=== PATIENT | male | born 1955 | race Two or more races ===

== ENCOUNTER 2025-09-16 07:35 | Inpatient (IN) | payer OTHER, MEDICAID ==
[~2025-09-16] VITALS: Ht 167.6 cm; Wt 115.2 kg
[~2025-09-16 07:35] MED LIST: ACET1CAP14 PO; CLOP75TA70 PO; METF-370 PO; METO25TA93 PO; PANT40TA2 PO
[2025-09-16 08:31] LABS: Chloride 101 mmol/L (98-107); Potassium 4.1 mmol/L (3.5-5.1); Sodium 139 mmol/L (136-145)
[2025-09-16 08:32] LABS: Anion Gap 9 (5-15); Calcium 10.1 mg/dL (8.7-10.4); Carbon Dioxide 29 mmol/L (20-31)
[2025-09-16 08:37] LABS: BUN/Creatinine Ratio 11.0 (10.0-20.0); Blood Urea Nitrogen 11 mg/dL (9-23); Glucose 103 mg/dL (74-106)
[2025-09-16] MEDS ORDERED: ONDANSETRON HCL 4 MG/2 ML VIAL IV PRN (09:00)
[2025-09-16] MEDS ORDERED: HYDROmorphone HCL 2 MG/ML VL/or syr IV PRN (09:00)
[2025-09-16] MEDS ORDERED: METOCLOPRAMIDE HCL 5MG/ml INJ 2ml VIAL IV PRN (09:00)
[2025-09-16] MEDS ORDERED: fentaNYL CITRATE 100 MCG/2 ML VL ONE (09:02)
[2025-09-16] MEDS ORDERED: MIDAZOLAM HCL 2MG/2ML 2ml VIAL (1mg/ml) ONE (09:02)
[2025-09-16] MEDS ORDERED: PROPOFOL 10 MG/ML 20 ML IV ONE (09:04)
[2025-09-16] MEDS ORDERED: ONDANSETRON HCL 4 MG/2 ML VIAL ONE (09:04)
[2025-09-16] MEDS ORDERED: METOCLOPRAMIDE HCL 5MG/ml INJ 2ml VIAL ONE (09:04)
[2025-09-16] MEDS: CEFEPIME 1GM/50ML 50 ML IV ONE (09:45)
[2025-09-16] MEDS: ceFAZolin 2 GM/D5W50ml 50 ML IV ONE (09:45)
[2025-09-16] MEDS: TRANEXAMIC ACID 20 ML ONE (09:50)
[2025-09-16] MEDS ORDERED: ROCURONIUM 10MG/ML 10ML VIAL IV ONE (10:15)
[2025-09-16] MEDS ORDERED: SODIUM CHLORIDE LOCK 10 ML ONE ×2 (10:23→11:49)
[2025-09-16] MEDS ORDERED: HYDROmorphone HCL 2 MG/ML VL/or syr ONE (10:37)
[2025-09-16] MEDS: VANCOMYCIN HCL 1000 MG VL ONE (10:48)
[2025-09-16] MEDS ORDERED: LIDOCAINE W/ EPINEPHRINE 1% 20ML VIAL ONE (10:50)
[2025-09-16] MEDS ORDERED: hydrALAZINE HCL 20 MG/ML VL ONE (10:52)
[2025-09-16] MEDS ORDERED: SUGAMMADEX 200mg/2ml Vial (100MG/ML) IV ONE (11:42)
[2025-09-16] MEDS ORDERED: ACETAMINOPHEN 325 MG TAB PO PRN (12:00)
--- NOTE | 2025-09-16 12:07 | DVHOP2 ---
Operative Report - 2 Report Details Date: 09/16/25 Preop Diagnosis: Left knee degenerative arthritis Postop Diagnosis: Left knee degenerative arthritis Surgeon: Izabela Elizabeth MD Maintenance Mechanic Technician: Fabrizio SMITH Anesthesiologist: Pop Anesthesia: General Drains: Mary closed wound suction Implant: DonJoy size eight femur PS, size seven tibial base plate, size 16 poly, size 35 patella Consent: The patient was informed of the risks and benefits of the procedure. These include but are not limited to complications of anesthesia, postoperative infection, incomplete relief of symptoms, recurrence of symptoms, damage to blood vessels, nerves and tendons, deep venous thrombosis, pulmonary embolism and possible need for repeat surgery in the future. Complications: None Estimated Blood Loss: 25 cc Fluids: See anesthesia record Findings: Osteophytes, denuded cartilage with eburnated bone x3 compartments Indications for Surgery: Left knee degenerative arthritis with severe pain and functional impairment despite nonoperative management Name of Procedure Performed Left total knee arthroplasty Procedure Details Procedure Details: The patient was brought to the operating room and placed on the table in the supine position after being given spinal anesthetic with adequate analgesia obtained. Surgical timeout was performed verifying patient, laterality and procedure Preop patient received IV cefepime IV Ancef and IV tranexamic acid. Tourniquet was applied to the lower extremity. Lower extremity was prepped and draped in sterile fashion. Extremity was elevated, exsanguinated Esmarch, and tourniquet inflated. Midline incision was made followed by medial arthrotomy. I exposed the anterior medial and lateral tibial plateau and the anterior distal femur. Bovie and aqua mantis were used for hemostasis. I excised the anterior meniscal tissue with Bovie. I excised a portion of the fat pad with Bovie. The patella was everted and the knee flexed. I drilled the distal femur and suctioned the hole to reduce the risk of fat emboli. I inserted intramedullary guide with 5 degree valgus setting. I pinned the distal femoral cutting block anteriorly. Intramedullary jose d was removed. Distal femoral cut was made and the block removed. I brought my attention to the tibia setting up the external cutting jig for the tibia paying attention to slope, rotation and varus valgus alignment. I set the depth and pinned the block. I used the external alignment jose d to aid in checking alignment. Bone cut was made and bone removed releasing soft tissue attachments with Bovie. Cutting block removed. I then checked the extension gap and deemed adequate and removed the femur and tibia pins. I flexed the knee and applied the femoral sizing guide to the femur. I checked the size and external rotation setting at 90 degrees to Whitesides line and checking the epicondylar axis. I drilled the holes then removed the sizing guide and pin. I then tapped on the 4 in 1 cutting block and checked with the remigio wing anteriorly to make sure that I would not notch then pinned the block. Cuts were made and the block and pins were removed. Bone was removed with curved osteotome. I used a rongeur to remove any remaining osteophytes at the femur and tibia. I then used a lamina capacitor pack press operator to open up the back alternating between the medial and lateral side. Any remaining meniscal tissue was excised with scalpel. I used curved osteotome, curette and rongeur to remove any posterior osteophytes. I prophylactically coagulated with aqua mantis. I then tapped on the template for the box cut and pinned it. Box cut was made and bone removed. Template and pin removed. I then tapped on the femoral trial. I then brought my attention back to the tibia sizing it. I used the external alignment jose d to make sure that rotation and alignment were good. I made a Bovie martha at the tibial tray martha identifying rotation for later use. I tried various tibial polytrials. [I then brought my attention to the patella. I sequentially dissected soft tissue with Bovie. I checked the thickness with caliper. I set the appropriate depth of cut on the cutting guide. I attached the cutting guide made my cut. I then sized the patella and made my drill holes. I then placed the patella trial with appropriate depth based on overall precut thickness. ] The patella tracked nicely without thumb pressure. I removed the trials. I pinned the tray and used the reamer and keel punch. The implants were brought into the field while bone preparation was started. I used both normal saline irrigation and the CarboJet to prepare the bone. I used the bone from the cuts to graft the femoral tunnel. Once cement was ready I applied cement to the tibial implant and tibial bone tapped it on and removed excess cement in usual fashion. In similar fashion I tapped on the femoral implant. I inserted the trial polyethylene and brought the knee into 30 degrees flexion. [I then applied the patella implant in similar fashion holding pressure with the pressurization device.] I irrigated with bacisurge irrigant. Once cement cured, I checked stability and range of motion as well as patella tracking. tourniquet was released and hemostasis maintained with aqua mantis. I inserted the polyethylene and again checked stability. I used a 2 grams of vancomycin half of which was placed deep and half superficial. I repaired the extensor mechanism with the knee in flexion with #1 Ethibond interrupted [id number]. Deep subcutaneous tissue was closed with 0 Vicryl. Superficial subcutaneous tissue was closed with 2-0 vicryl interrupted. Skin was closed with temitope. I then applied the [mary closed wound suction]. Patient tolerated the procedure well and was brought to recovery room in stable condition. Condition Stable Disposition Still a Patient IZABELA ELIZABETH MD Sep 16, 2025 12:07
[2025-09-16 12:37] VITALS: PULSE 96; RESP 16; O2SAT 92
[2025-09-16] MEDS: ACETAMINOPHEN IV 1000 MG/100ML (10MG/ML) IV ONE (13:15)
[2025-09-16] MEDS: hydrALAZINE HCL 20 MG/ML VL ONE (13:30)
[2025-09-16] MEDS: hydrALAZINE HCL 20 MG/ML VL IV PRN ×2 (13:38→14:48)
[2025-09-16] MEDS ORDERED: ceFAZolin 2 GM/D5W50ml 50 ML IV SCH (14:00)
[2025-09-16] MEDS: METOPROLOL TARTRATE 1MG/1ML-5ML VIAL IV STA (14:22)
--- NOTE | 2025-09-16 14:38 | DVH ---
EXAM: XY L KNEE 3V XRAY HISTORY: postop COMPARISON: None TECHNIQUE: 3 views of the left knee were performed. FINDINGS/IMPRESSION: Postoperative changes of left total knee arthroplasty without evidence of periprosthetic fracture, loosening, or other complication.
[2025-09-16] MEDS: THROAT LOZENGES(CEPASTAT) MT PRN (15:43)
[2025-09-16] MEDS: KETOROLAC TROMETH 30 MG/ML 1ML VIAL IV SCH (15:49)
[2025-09-16] MEDS: TETRACAINE 1% INJ 2 ML VIAL IJ ONE (15:49)
[2025-09-16] MEDS: SODIUM CHLORIDE 0.9% 1,000 ML IV SCH (15:49)
[2025-09-16] MEDS: ROPIVACAINE 0.5% (5MG/ML) 20ML AMPULE IJ ONE (15:49)
[2025-09-16] MEDS: ACETAMINOPHEN 325 MG TAB PO SCH (15:50)
[2025-09-16] MEDS: THROAT LOZENGES(CEPASTAT) MT ONE (15:50)
--- NOTE | 2025-09-16 17:35 | ECG ---
[facility] Test Date: 2025-09-16 Test Time: 17:14:29 Pat Name: ARMEN DOUGLAS Department: Room: 0286 Gender: M Change Management Administrator: SUKHWINDER : 1955 Requested By: DENIA YANES Order Number: [id number] Reading MD: Heraclio Leblanc Measurements Intervals [place] Rate: 93 P: 32 DE: 148 QRS: -46 QRSD: 82 T: 86 QT: 374 QTc: 465 Interpretive Statements Sinus rhythm with premature atrial complexes Possible Left atrial enlargement Left axis deviation Pulmonary disease pattern Left ventricular hypertrophy with repolarization abnormality Cannot rule out Septal infarct , age undetermined Electronically Signed On 09-18-2025 18:27:28 PST by Heraclio Leblanc Please click the below link to view image of tracing.
[2025-09-16 18:00] VITALS: PULSE 97; O2SAT 97
[2025-09-16 18:27] VITALS: BP 148/87; PULSE 97; RESP 18; TEMP 98; O2SAT 97
[2025-09-16 20:00] VITALS: PULSE 103; RESP 18; O2SAT 97
[2025-09-16] MEDS: ceFAZolin 2 GM/D5W50ml 50 ML IV SCH (20:46)
[2025-09-16 21:00] VITALS: BP 122/80; PULSE 103; RESP 18; TEMP 98; O2SAT 97
[2025-09-16] MEDS: PREGABALIN 25 MG CAP PO SCH (22:44)
[2025-09-17 01:00] VITALS: BP 116/74; PULSE 106; RESP 18; TEMP 98.1; O2SAT 98
[2025-09-17 05:00] VITALS: BP 106/89; PULSE 104; RESP 17; TEMP 98.1; O2SAT 98
[2025-09-17 06:06] LABS: Hematocrit 44.8 % (41.0-53.0); Hemoglobin 14.6 g/dL (13.5-17.5); Mean Corpuscular Hemoglobin 24.7 pg (28.0-32.0); Mean Corpuscular Volume 75.9 fL (80.0-100.0); Nucleated Red Blood Cells % 0.0 %
[2025-09-17 06:17] LABS: Chloride 99 mmol/L (98-107); Potassium 4.4 mmol/L (3.5-5.1)
[2025-09-17 06:18] LABS: Anion Gap 11 (5-15); Carbon Dioxide 25 mmol/L (20-31)
[2025-09-17 06:19] LABS: Calcium 9.0 mg/dL (8.7-10.4)
[2025-09-17 06:23] LABS: BUN/Creatinine Ratio 15.5 (10.0-20.0); Blood Urea Nitrogen 16 mg/dL (9-23)
[2025-09-17 06:26] LABS: Glucose 148 mg/dL (74-106); Sodium 135 mmol/L (136-145)
[2025-09-17 09:00] VITALS: BP 134/77; PULSE 107; RESP 18; TEMP 99.2; O2SAT 94
[2025-09-17] MEDS: PANTOPRAZOLE 40 MG TAB PO SCH (09:43)
[2025-09-17] MEDS: METOPROLOL SUCCINATE XL 50 MG TAB PO SCH (09:43)
[2025-09-17 13:00] VITALS: BP 101/62; PULSE 96; RESP 18; TEMP 97.5; O2SAT 93
--- NOTE | 2025-09-17 14:54 | DVHDS2 ---
Discharge Summary Date of Admission Sep 16, 2025 at 11:58 Date of Discharge: Sep 17, 2025 Labs/Diagnostic Data: Laboratory Results Test 09/17/25 05:40 09/16/25 12:43 White Blood Count 16.1 10^3/uL (4.4-10.8) Red Blood Count 5.90 10^6/uL (4.5-5.90) Hemoglobin 14.6 g/dL (13.5-17.5) Hematocrit 44.8 % (41.0-53.0) Mean Corpuscular Volume 75.9 fL (80.0-100.0) Mean Corpuscular Hemoglobin 24.7 pg (28.0-32.0) Mean Corpuscular Hemoglobin Concent 32.6 g/dL (32.0-36.0) Red Cell Distribution Width 17.1 % (11.8-14.3) Platelet Count 191 10^3/uL (140-450) Mean Platelet Volume 8.4 fL (6.9-10.8) Neutrophils (%) (Auto) 84.7 % (37.0-80.0) Lymphocytes (%) (Auto) 4.6 % (10.0-50.0) Monocytes (%) (Auto) 10.6 % (0.0-12.0) Eosinophils (%) (Auto) 0.0 % (0.0-7.0) Basophils (%) (Auto) 0.1 % (0.0-2.0) Neutrophils # (Auto) 13.6 10 ^3/uL (1.6-8.6) Lymphocytes # (Auto) 0.7 10 ^3/uL (0.4-5.4) Monocytes # (Auto) 1.7 10 ^3/uL (0-1.3) Eosinophils # (Auto) 0 10 ^3/uL (0-0.8) Basophils # (Auto) 0 10 ^3/uL (0-0.2) Nucleated Red Blood Cells 0.0 % Sodium Level 135 mmol/L (136-145) Potassium Level 4.4 mmol/L (3.5-5.1) Chloride Level 99 mmol/L (98-107) Carbon Dioxide Level 25 mmol/L (20-31) Anion Gap 11 (5-15) Blood Urea Nitrogen 16 mg/dL (9-23) Creatinine 1.03 mg/dL (0.700-1.30) Glomerular Filtration Rate Calc 78 mL/min (>90) BUN/Creatinine Ratio 15.5 (10.0-20.0) Serum Glucose 148 mg/dL (74-106) Calcium Level 9.0 mg/dL (8.7-10.4) POC Glucose 150 mg/dl (70-106) Other Laboratory Tests 09/17/25 05:40 Brief Hx & Hospital Course: Patient was brought to the hospital yesterday to undergo a left total knee arthroplasty. He tolerated the procedure well without complications and was kept overnight for postoperative observation. Patient denied any overnight events and has remained medically stable and reports some postoperative knee pain that is being well managed with the help of pain medication. Patient reports that he was able to get up and walk with the help of physical therapy and his walker and was able to get down the kimball around the nurses station and back to his bed this morning with some postoperative knee pain that was otherwise tolerable. Patient is otherwise feeling well and is ready to go home. Condition at Discharge: Stable Final Diagnosis/Problems List Left knee degenerative arthritis Discharge Disposition: Home Discharge Instruct/Medications Diet: Regular Activity: See Comment Activity comment: Patient to remain weight-bearing as tolerated with the assistance of a walker. Follow Up/Referral: Patient instructed to follow up with our office in 10-14 days for his 1st postoperative evaluation Medications: Rx sent via our outpatient EMR system Scheduled Clopidogrel Bisulfate (Clopidogrel), Unknown Dose PO DAILY, (Reported) Pantoprazole Sodium Sesquihydr (Protonix), Unknown Dose PO DAILY, (Reported) Miscellaneous Medications Acetaminophen (Tylenol), Unknown Dose PO, (Reported) Metformin Hydrochloride (Metformin Hcl), Unknown Dose PO, (Reported) Metoprolol Succinate (Metoprolol Succinate Er), Unknown Dose PO, (Reported) Discharge Statement: "Patient was advised to return to the ER or call 911 if any headaches, dizziness, shortness of breath, chest pain, abdominal pain, bleeding, fevers, or worsening of medical condition. Patient was counseled about treatment plan, medications, possible side effects, patientverbalized understanding. All questions were answered to the best of my ability. This discharge took greater then 30 minutes in planning, reviewing documentation, counseling the patient, and discussing with other team members." ASSESSMENT ASSESSMENT Assessment Left knee degenerative arthritis ADRIÁN HURTADO Sep 17, 2025 14:54
--- NOTE | 2025-09-17 14:56 | DVHPN2 ---
Progress Note - Dictate Date Seen: Sep 17, 2025 Medical Necessity Reason Pt with a Central, PICC or Fol: No Subjective Patient was lying comfortably in bed during my evaluation and reports some postoperative knee pain that is being well managed with the help of pain medication. Patient reports that he was able to get up and walk with the help of physical therapy and his walker yesterday as well as today and was able to get down the kimball around the nurses station and back to his bed with some postoperative knee pain but is otherwise feeling stable. Patient was otherwise feeling well denying any other complaints or concerns during my evaluation and is ready to go home. vital signs Vital Sign Date Time Temp Pulse Resp B/P (MAP) Pulse Ox O2 Delivery O2 Flow Rate FiO2 09/17/25 13:00 97.5 96 18 101/62 (75) 93 97.5 09/17/25 08:25 Room Air* 0 21 Total Intake and Output 09/16/25 09/16/25 09/17/25 15:00 23:00 07:00 Intake Total 220 ml 1475 ml Output Total 50 ml 500 ml Balance 220 ml -50 ml 975 ml medications Current Medications Medications Dose Ordered Sig/Newton Route Start Time Stop Time Status Last Admin Dose Admin Metformin HCl 500 mg BIDWM PO 09/16/25 18:00 09/17/25 08:05 500 MG Pantoprazole Sodium 40 mg DAILY PO 09/17/25 10:00 09/17/25 09:43 40 MG Metoprolol Succinate 25 mg DAILY PO 09/17/25 10:00 09/17/25 09:43 25 MG Acetaminophen 650 mg Q4HP PRN PO 09/16/25 12:00 Acetaminophen 650 mg Q6HR PO 09/16/25 12:00 09/17/25 12:21 650 MG Ketorolac Tromethamine 15 mg Q6HR IV 09/16/25 12:00 09/21/25 11:59 09/17/25 12:22 15 MG Pregabalin 50 mg BID PO 09/16/25 22:00 09/17/25 09:41 50 MG Oxycodone HCl 5 mg Q4HP PRN PO 09/16/25 12:00 09/16/25 22:44 5 MG Oxycodone HCl 10 mg Q4HP PRN PO 09/16/25 12:00 Aspirin 81 mg BID PO 09/17/25 10:00 09/17/25 09:41 81 MG Sodium Chloride 1,000 ml @ 125 mls/hr Q8H IV 09/16/25 12:00 09/17/25 11:05 125 MLS/HR Hydralazine HCl 5 mg Q20MP PRN IV 09/16/25 14:15 09/20/25 10:01 09/16/25 14:48 5 MG Throat Lozenges 1 minna Q2HP PRN MT 09/16/25 15:45 09/16/25 15:43 1 MINNA objective A&O x4 in no acute distress Knee range of motion grossly limited with pain on movement Marv dressing clean, dry, intact, and maintaining suction No distal edema or calf tenderness to palpation Neurovascularly intact with cap refill less than 2 seconds laboratory and microbiology Laboratory Tests 09/17/25 05:40 Test 09/17/25 05:40 Range/Units Serum Glucose 148 H 74-106 mg/dL Assessment/Plan Patient to be discharged home and advised to remain weight-bearing as tolerated with the assistance of a walker. I advised the patient to follow up with our office in 10-14 days for his 1st postoperative evaluation and to maintain his dressings clean, dry, intact, and maintaining suction and to call our office if he has any further questions or concerns. Rx sent via our outpatient EMR system. Patient understood and agreed. Plan discussed with: Patient ADRIÁN HURTADO Sep 17, 2025 14:56
--- NOTE | 2025-09-17 15:21 | DVHINCON2 ---
Date of service: Sep 16, 2025 Reason for Consultation Medical management while in the hospital History of Present Illness This is a 70-year-old gentleman with a coronary artery bypass graft surgery few years ago and diabetes protein to the hospital by orthopedic surgeon and underwent successful knee surgery. Postop patient is admitted overnight for monitoring and observation. Medical consultation has been requested by orthopedic surgeon while he is in the hospital for any acute issues. Currently patient is comfortable postop. Denies any complaints. Other review of systems reviewed normal. Past Medical History Coronary artery atherosclerotic vascular disease, morbid obesity BMI 41, osteoarthritis of the knees, diabetes mellitus type 2 Past Surgical History Coronary artery bypass graft surgery Family History: Diabetes mellitus G8 MOTHER Allergies: Coded Allergies: NO KNOWN ALLERGIES (Unverified , 09/15/25) Home Meds Reported Medications Acetaminophen (Tylenol) 325 Mg Cap, PO, CAP 09/15/25 Metformin Hydrochloride (Metformin Hcl) 500 Mg Tab, PO, TAB 09/15/25 Clopidogrel Bisulfate (CLOPIDOGREL) 75 Mg Tab, PO DAILY, TAB 09/15/25 Pantoprazole Sodium Sesquihydr (Protonix) 40 Mg Tab, PO DAILY, #30 TAB 09/15/25 Metoprolol Succinate (Metoprolol Succinate Er) 25 Mg Tab, PO, TAB 09/15/25 Current Medications Current Medications Medications (Trade) Dose Ordered Sig/Newton Route PRN Reason Start Time Stop Time Status Last Admin Metformin HCl (Glucophage) 500 mg BIDWM PO 09/16/25 18:00 09/17/25 08:05 Pantoprazole Sodium (Protonix Tablet) 40 mg DAILY PO 09/17/25 10:00 09/17/25 09:43 Metoprolol Succinate (Toprol Xl) 25 mg DAILY PO 09/17/25 10:00 09/17/25 09:43 Pregabalin (Lyrica Capsule) 50 mg BID PO 09/16/25 22:00 09/17/25 09:41 Aspirin 81 mg BID PO 09/17/25 10:00 09/17/25 09:41 Throat Lozenges (Cepastat Lozenges) 1 dilia Q2HP PRN MT FOR SORE THROAT 09/16/25 15:45 09/16/25 15:43 Cefazolin Sodium/ Dextrose 50 ml @ 50 mls/hr Q8HR IV 09/16/25 19:30 09/16/25 22:59 DC 09/16/25 22:44 Review of Systems Other review of systems reviewed normal Vital Signs Vital Signs Date Time Temp Pulse Resp B/P (MAP) Pulse Ox O2 Delivery O2 Flow Rate FiO2 09/17/25 13:00 97.5 96 18 101/62 (75) 93 97.5 09/17/25 08:25 Room Air* 0 21 Physical Exam Pleasant gentleman comfortable in bed alert awake oriented to place and person. HEENT neck supple no JVD. Heart regular rate and rhythm S1-S2. Lungs fair air movement without rales wheezes. Abdomen obese soft positive bowel sounds. Extremities no edema positive pulses Labs/Diagnostic Data Labs Test 09/17/25 05:40 09/16/25 12:43 Range/Units White Blood Count 16.1 H 4.4-10.8 10^3/uL Red Blood Count 5.90 4.5-5.90 10^6/uL Hemoglobin 14.6 13.5-17.5 g/dL Hematocrit 44.8 41.0-53.0 % Mean Corpuscular Volume 75.9 L 80.0-100.0 fL Mean Corpuscular Hemoglobin 24.7 L 28.0-32.0 pg Mean Corpuscular Hemoglobin Concent 32.6 32.0-36.0 g/dL Red Cell Distribution Width 17.1 H 11.8-14.3 % Platelet Count 191 140-450 10^3/uL Mean Platelet Volume 8.4 6.9-10.8 fL Neutrophils (%) (Auto) 84.7 H 37.0-80.0 % Lymphocytes (%) (Auto) 4.6 L 10.0-50.0 % Monocytes (%) (Auto) 10.6 0.0-12.0 % Eosinophils (%) (Auto) 0.0 0.0-7.0 % Basophils (%) (Auto) 0.1 0.0-2.0 % Neutrophils # (Auto) 13.6 H 1.6-8.6 10 ^3/uL Lymphocytes # (Auto) 0.7 0.4-5.4 10 ^3/uL Monocytes # (Auto) 1.7 H 0-1.3 10 ^3/uL Eosinophils # (Auto) 0 0-0.8 10 ^3/uL Basophils # (Auto) 0 0-0.2 10 ^3/uL Nucleated Red Blood Cells 0.0 % Sodium Level 135 L 136-145 mmol/L Potassium Level 4.4 3.5-5.1 mmol/L Chloride Level 99 98-107 mmol/L Carbon Dioxide Level 25 20-31 mmol/L Anion Gap 11 5-15 Blood Urea Nitrogen 16 9-23 mg/dL Creatinine 1.03 0.700-1.30 mg/dL Glomerular Filtration Rate Calc 78 >90 mL/min BUN/Creatinine Ratio 15.5 10.0-20.0 Serum Glucose 148 H 74-106 mg/dL Calcium Level 9.0 8.7-10.4 mg/dL POC Glucose 150 H 70-106 mg/dl Assessment Status post knee surgery Obesity with a BMI 41 History of coronary artery bypass graft surgery Atherosclerotic heart disease Diabetes mellitus type 2 Patient's meds reviewed. He is advised to resume Plavix after seven days from date of discharge. Meantime continue aspirin statin and cardiac medications. Continue aspirin. Resume his home metformin upon discharge. Otherwise incentive spirometry while in the hospital. Physical therapy evaluation. Pain and nausea medications. Supportive care and treatment. Cardiac diet. If patient remains stable overnight can be discharged home in the next 24 hours. Otherwise further clinical management per clinical course. Plan discussed with: Other (Nurse) ILIR VIZCAINO MD Sep 17, 2025 15:21
[2025-09-17 17:00] VITALS: BP 122/83; PULSE 90; RESP 18; TEMP 97.6; O2SAT 92
--- NOTE | 2025-09-18 10:56 | ECG ---
[facility] Test Date: 2025-09-16 Test Time: 17:16:24 Pat Name: ARMEN DOUGLAS Department: Room: 0286 A Gender: M Manager Medical Writing: SUKHWINDER : 1955 Requested By: IZABELA ELIZABETH Order Number: [id number] Reading MD: Heraclio Leblanc Measurements Intervals [place] Rate: 89 P: 26 [place]: 146 QRS: -47 QRSD: 84 T: 84 QT: 380 QTc: 462 Interpretive Statements Normal sinus rhythm Possible Left atrial enlargement Left axis deviation Pulmonary disease pattern Left ventricular hypertrophy with repolarization abnormality Cannot rule out Septal infarct , age undetermined Electronically Signed On 09-18-2025 18:27:35 PST by Heraclio Leblanc Please click the below link to view image of tracing.
--- NOTE | 2025-09-18 10:56 | ECG ---
[facility] Test Date: 2025-09-16 Test Time: 17:15:20 Pat Name: ARMEN DOUGLAS Department: Room: 0286 A Gender: M Cask Maker: SUKHWINDER : 1955 Requested By: IZABELA ELIZABETH Order Number: [id number] Reading MD: Heraclio Leblanc Measurements Intervals [place] Rate: 92 P: 23 [place]: 146 QRS: -47 QRSD: 84 T: 90 QT: 374 QTc: 462 Interpretive Statements Normal sinus rhythm Possible Left atrial enlargement Left axis deviation Pulmonary disease pattern Left ventricular hypertrophy with repolarization abnormality Cannot rule out Septal infarct , age undetermined Electronically Signed On 09-18-2025 18:27:32 PST by Heraclio Leblanc Please click the below link to view image of tracing.
== END 2025-09-17 18:40 | disposition home or self-care (01) | DRG 470 ==
LOC: SUR 07:35 → OVERFLOW 11:58 → WEST WING 18:00
PROVIDERS: ADMIT Orthopaedic Surgery; ATTEND Orthopaedic Surgery
PROC: 0SRD0J9 Replacement of Left Knee Joint with Synthetic Substitute, Cemented, Open Approach (ICD-10-PCS; principal; 2025-09-16 09:42)
DX: M17.12 Unilateral primary osteoarthritis, left knee (principal); E11.9 Type 2 diabetes mellitus without complications; Z68.41 Body mass index [BMI] 40.0-44.9, adult; E66.01 Morbid (severe) obesity due to excess calories; M25.762 Osteophyte, left knee; I25.10 Atherosclerotic heart disease of native coronary artery without angina pectoris; Z79.899 Other long term (current) drug therapy; Z95.1 Presence of aortocoronary bypass graft; Z83.3 Family history of diabetes mellitus; Z79.84 Long term (current) use of oral hypoglycemic drugs
CPT/HCPCS: 36415; 73562; 80048; 82962; 85025; 86850; 86900; 86901; 93005; 97116; 97163; G0378; J0131; J1100; J1885; J2250; J2405; J2704